=== PATIENT | female | born 1980 | race Two or more races ===

== ENCOUNTER 2021-07-12 12:56 | Inpatient (IN) | payer OTHER ==
[2021-07-12] MEDS ORDERED: ELECTROLYTE-148 SOLN 1,000 ML IV SCH ×2 (13:00→14:30)
[2021-07-12] MEDS ORDERED: AMPICILLIN - 2 GM in SODIUM CHLORIDE 100 ML IVPB ONE (13:00)
[2021-07-12 14:02] VITALS: BMI 27.4
[2021-07-12 14:32] LABS: BASO % 0.2 % (0-2.0); EOS % 0.1 % (0-4.5); HEMATOCRIT 39.7 % (32.4-45.2); HEMOGLOBIN 13.3 GM/dL (10.7-15.3); LYMPH % 17.3 % (8-40); MCH 28.7 pg (25.7-33.7); MCHC 33.6 g/dl (32.0-36.0); MEAN CELL VOLUME 85.4 fl (80-96); MEAN PLT VOLUME 8.1 fl (7.5-11.1); MONO % 6.9 % (3.8-10.2); NEUT % 75.5 % (42.8-82.8); PLATELET COUNT 184 10^3/uL (134-434); RBC 4.65 M/mm3 (3.60-5.2); RDW 14.7 % (11.6-15.6); WHITE BLOOD COUNT 11.1 K/mm3 (4.0-10.0)
[2021-07-12] MEDS ORDERED: OXYTOCIN 20 UNITS in 0.9% NS 20 UNIT/1,000 ML INFUS.BAG IV ONE ×2 (14:35→19:11)
[2021-07-12 14:37] LABS: INR 0.84 (0.83-1.09); PROTHROMBIN TIME (PATIENT) 10.1 SEC (9.7-13.0)
[2021-07-12 14:39] LABS: ACTIVATED PTT 26.2 SECONDS (25.2-36.5)
[2021-07-12 14:52] LABS: BLOOD UREA NITROGEN 6.1 mg/dL (7-18)
[2021-07-12 14:56] LABS: CREATININE 0.5 mg/dL (0.55-1.3)
[2021-07-12] MEDS ORDERED: PCA PUMP NR ONE (14:56)
[2021-07-12] MEDS ORDERED: FENTANYL/BUPIVACAINE/NS/PF - PCEA - 50 ML DISP.SYRIN EP ONE (14:56)
[2021-07-12] MEDS ORDERED: NALOXONE HCL 0.4 MG/ML VIAL IVPUSH PRN (15:00)
[2021-07-12] MEDS ORDERED: FENTANYL/BUPIVACAINE/NS/PF - PCEA - 50 ML DISP.SYRIN EP SCH (15:00)
[2021-07-12] MEDS ORDERED: BUPIVACAINE HCL/PF 0.25% (2.5MG/ML) 10 ML VIAL ONE (15:01)
[2021-07-12 15:46] LABS: HIV INTERPRETATION NEGATIVE (NEGATIVE)
[2021-07-12] MEDS ORDERED: AMPICILLIN SODIUM 1 GM VIAL ONE (16:17)
[2021-07-12] MEDS ORDERED: AMPICILLIN - 1 GM in SODIUM CHLORIDE 100 ML IVPB SCH (17:00)
[2021-07-12] MEDS: OXYTOCIN 20 UNITS in 0.9% NS 20 UNIT/1,000 ML INFUS.BAG IV SCH ×2 (17:10→19:25)
[2021-07-12] MEDS ORDERED: ACETAMINOPHEN 325 MG TABLET (FP) PO PRN (17:27)
[2021-07-12] MEDS ORDERED: WITCH HAZEL 50% (TUCKS) 40 PAD/JAR PAD TP PRN (17:27)
[2021-07-12] MEDS ORDERED: BISACODYL 10 MG SUPP.RECT RC PRN (17:27)
[2021-07-12] MEDS ORDERED: oxyCODONE HCL 5 MG TABLET PO PRN (17:27)
[2021-07-12] MEDS ORDERED: BENZOCAINE 20% 57 GM BOTTLE TP PRN (17:27)
[2021-07-12] MEDS ORDERED: METHYLERGONOVINE MALEATE 0.2 MG/1 ML AMP IM PRN (17:27)
[2021-07-12] MEDS ORDERED: BENZOCAINE 28 GM HEMORRHOIDAL OINTMENT TP PRN (17:27)
[2021-07-12] MEDS: IBUPROFEN 600 MG TABLET (FP) PO PRN (23:19)
[2021-07-13 07:45] LABS: POC NITRAZINE POS
[2021-07-13] MEDS: IBUPROFEN 600 MG TABLET (FP) PO PRN ×3 (08:51→20:01)
[2021-07-13 08:56] LABS: BASO % 0.3 % (0-2.0); EOS % 0.3 % (0-4.5); HEMATOCRIT 38.6 % (32.4-45.2); HEMOGLOBIN 12.8 GM/dL (10.7-15.3); LYMPH % 14.9 % (8-40); MCH 28.5 pg (25.7-33.7); MCHC 33.1 g/dl (32.0-36.0); MEAN CELL VOLUME 86.2 fl (80-96); MEAN PLT VOLUME 8.1 fl (7.5-11.1); MONO % 8.4 % (3.8-10.2); NEUT % 76.1 % (42.8-82.8); PLATELET COUNT 180 10^3/uL (134-434); RBC 4.48 M/mm3 (3.60-5.2); RDW 14.8 % (11.6-15.6); WHITE BLOOD COUNT 12.5 K/mm3 (4.0-10.0)
[2021-07-13] MEDS: PRENATAL VITAMINS W/ FOLIC ACID TABLET (FP) PO SCH (09:01)
[2021-07-13] MEDS ORDERED: FLU VACC QS2021-22(6MOS UP)/PF 60 MCG/0.5 ML SYRINGE IM ONE (10:00)
[2021-07-13] MEDS ORDERED: SENNOSIDES/DOCUSATE COMBO (SENNA PLUS) TABLET (UD) PO PRN (22:00)
[2021-07-14 10:01] VITALS: BP 125/75; PULSE 60; TEMP 97.8
[2021-07-14] MEDS: PRENATAL VITAMINS W/ FOLIC ACID TABLET (FP) PO SCH (11:22)
== END 2021-07-14 11:20 | disposition home or self-care (01) | DRG 560 ==
LOC: JLDR 12:56 → J3W 19:47
PROVIDERS: ADMIT Obstetrics & Gynecology; ATTEND Obstetrics & Gynecology
PROC: 10E0XZZ Delivery of Products of Conception, External Approach (ICD-10-PCS; principal; 2021-07-12)
PROC: 0DQP0ZZ Repair Rectum, Open Approach (ICD-10-PCS; 2021-07-12)
DX: O48.0 Post-term pregnancy (principal); O70.3 Fourth degree perineal laceration during delivery; Z3A.40 40 weeks gestation of pregnancy; Z37.0 Single live birth
CPT/HCPCS: 36415; 59409; 80048; 83986-QW; 85025; 85610; 85730; 86780; 86850; 86900; 86901; 87389; 90686; C9803; G0008; U0003; U0005